=== PATIENT | male | born 1940 | race Caucasian/White ===

== ENCOUNTER 2025-08-20 05:36 | Emergency (ER) | payer MEDICARE ==
[2025-08-20 07:25] LABS: #Basophils 0.03 10x3/uL (0.0-0.2); #Eosinophils 0.11 10x3/uL (0.0-0.7); #Monocytes 0.73 10x3/uL (0.11-0.59); #Neutrophils 4.07 10x3/uL (1.40-6.50); %Basophils 0.5 % (0.0-1.0); %Eosinophils 1.8 % (0.0-10.0); %Lymphocytes 20.4 % (21.0-51.0); %Monocytes 11.7 % (0.0-10.0); %Neutrophils 65.1 % (42.0-75.0); Hematocrit 39.9 % (42.0-52.0); Hemoglobin 12.8 g/dL (14.0-18.0); Mean Corpuscular Hemoglobin 28.3 pg (27.0-31.0); Mean Corpuscular Volume 88.1 fL (78.0-98.0); Platelet Count 146 10x3/uL (130-400); Red Blood Cell (RBC) Count 4.53 mill/uL (4.70-6.10); White Blood Cell (WBC) Count 6.24 10x3/uL (4.8-10.8)
[2025-08-20 07:39] LABS: INR-International Normal Ratio 1.0; PTT 35.2 sec (22.9-36.1); Prothrombin Time 13.2 sec (12.0-14.7)
[2025-08-20 07:40] LABS: ALT (SGPT) 15 U/L (Less than 45); AST (SGOT) 12 U/L (11-34); Albumin 3.6 g/dL (3.1-4.5); Alkaline Phosphatase 89 U/L (40-110); Anion Gap 14 mmol/L (10-20); BUN (Urea Nitrogen) 26 mg/dL (8.4-25.7); Bilirubin, Total 0.2 mg/dL (0.3-1.2); CK (CPK) 89 U/L (30-200); Calc. Creatinine Clearance 0 mL/min (70-130); Calcium 9.0 mg/dL (7.8-10.44); Carbon Dioxide 23 mmol/L (23-31); Chloride 104 mmol/L (98-107); Globulin 3.3 g/dL (2.4-3.5); Glucose 361 mg/dL (83-110); Potassium 5.3 mmol/L (3.5-5.1); Sodium 136 mmol/L (136-145)
[2025-08-20 08:28] LABS: Glucose, Urine (Dipstick) >=1000 mg/dL (Negative); Leukocyte Negative (Negative); Protein, Urine (Dipstick) Negative (Neg-Trace); Specific Gravity, Urine 1.015 (1.005-1.030)
[2025-08-20 08:33] LABS: Bacteria/HPF None Seen HPF (None Seen); CAUTI Indications for Culture Alt mental st,lethar; RBC/HPF None Seen HPF (0-3); WBC/HPF 0-3 HPF (0-3)
[2025-08-20 08:34] LABS: Urine Culture Reflex No No
== END 2025-08-20 19:40 ==
LOC: ERS 05:36
DX: R55 Syncope and collapse (principal); I48.91 Unspecified atrial fibrillation; R53.1 Weakness; I10 Essential (primary) hypertension; E11.9 Type 2 diabetes mellitus without complications
CPT/HCPCS: 36415; 70450; 71045; 72125; 80053; 81001; 82550; 84484; 85025; 85610; 85730; 93005; 96360